=== PATIENT | male | born 1965 | race Caucasian/White ===

== ENCOUNTER → 2024-01-26 13:57 | Outpatient (REF) | payer OTHER, SELFPAY | LOC: RCS 13:57 | PROVIDERS: ATTENDING PHYSICIAN Internal Medicine Cardiovascular Disease; FAMILY PHYSICIAN Family Medicine | DX: E78.00 Pure hypercholesterolemia, unspecified (principal); R93.1 Abnormal findings on diagnostic imaging of heart and coronary circulation | CPT/HCPCS: 93306 ==

== ENCOUNTER → 2024-04-30 08:03 | Outpatient (REF) | payer OTHER, SELFPAY | LOC: RAD 08:03 | PROVIDERS: ATTENDING PHYSICIAN Student in an Organized Health Care Education/Training Program; FAMILY PHYSICIAN Family Medicine | DX: M79.671 Pain in right foot (principal) | CPT/HCPCS: 73630 ==

== ENCOUNTER → 2025-04-19 08:18 | Outpatient (REF) | payer OTHER, SELFPAY | LOC: RAD 08:18 | PROVIDERS: ATTENDING PHYSICIAN Family Medicine | DX: R50.9 Fever, unspecified (principal); D72.829 Elevated white blood cell count, unspecified | CPT/HCPCS: 71046 ==

== ENCOUNTER → 2025-04-28 08:43 | Outpatient (REF) | payer OTHER, SELFPAY | LOC: REG 08:43 | PROVIDERS: ATTENDING PHYSICIAN Family Medicine | DX: S83.512D Sprain of anterior cruciate ligament of left knee, subsequent encounter (principal) | CPT/HCPCS: 73564 ==